=== PATIENT | male | born 1990 | race Caucasian/White ===

== ENCOUNTER 2018-11-17 19:31 | Inpatient (IN) | payer OTHER ==
--- NOTE | 2018-11-17 19:38 | EDPHY ---
H & P Time Seen by Provider: 11/17/18 19:33 HPI/ROS: CHIEF COMPLAINT: M1, suicidal ideation HISTORY OF PRESENT ILLNESS: 28-year-old male arrives via police on an M1 hold for his concerns over suicidal ideation. Patient is unable to provide me limited information. When asked the patient questions he will stare at me and read limited information. Specifically when I inquire about suicidal ideation states that this is not true and that he was "just talking trash". Per the M1 report, patient was fired from the job today, has been off of his medication and has endorsed suicidal ideation. Patient denies self-injurious behavior. He will not answer whether he is experiencing hallucinations. He will not answer when I asked about substance abuse. PRIMARY CARE PROVIDER: REVIEW OF SYSTEMS: 10 systems reviewed and negative with the exception of the elements mentioned in the history of present illness PAST MEDICAL & SURGICAL HISTORY: Paranoid schizophrenia. SOCIAL HISTORY:The patient will not answer whether he has consumed acute alcohol or drugs PHYSICAL EXAM (Prior to examination, patient consented to physical exam, hands were washed and my usual and customary physical exam procedures followed) 1) GENERAL: Well-developed, well-nourished, alert , flat affect. 2) HEAD: Normocephalic, atraumatic 3) HEENT: Pupils equal, round, reactive to light bilaterally. Sclera anicteric. 4) NECK: Full range of motion, no meningeal signs. 5) LUNGS: Clear auscultation bilaterally, no wheezes, no rhonchi, no retractions. 6) HEART: Regular rate and rhythm, no murmur, no heave, no gallop. 7) ABDOMEN: No guarding, no rebound, no focal tenderness, negative McBurney's, negative Elder's, negative Rovsing's, negative peritoneal sign, 8) MUSCULOSKELETAL: Moving all extremities, no focal areas of tenderness, no obvious trauma. No peripheral edema or discoloration. 9) BACK: No CVA tenderness, no midline vertebral tenderness, no fluctuance, no step-off, no obvious trauma, no visual or palpable abnormality. 10) SKIN: No rash, no petechiae. 11) Psychiatric: Patient is oriented X 3, there is no agitation. DIFFERENTIAL DIAGNOSIS: In no particular order including but not limited to suicidal ideation, homicidal ideation, polysubstance abuse (Zulema Gutiérrez Melissa) Constitutional: Initial Vital Signs Temperature (C) 36.4 C 11/17/18 19:46 Heart Rate 84 11/17/18 19:46 Respiratory Rate 16 11/17/18 19:46 Blood Pressure 146/94 H 11/17/18 19:46 O2 Sat (%) 94 11/17/18 19:46 O2 Delivery Mode Room Air Allergies/Adverse Reactions: ranitidine Allergy (Verified 11/17/18 19:55) Home Medications: Medication Instructions Recorded Depakote 11/17/18 Medical Decision Making ED Course/Re-evaluation: 7:55 p.m.: Care of patient under supervision of secondary supervising physician Dr Leatha Dodson with whom I discussed case. 9:30 p.m.: Informed by mental health home care giver that mental health evaluation will not occur until tomorrow morning. 11:36 p.m.: Patient requesting trazodone for insomnia. Midnight: Care turned over to Dr Gonzales (Zulema Gutiérrez Melissa) 0631AM: 11/18/18: Patient signed over to Dr. Agustin. No acute events overnight, patient been sleeping. Pending mental evaluation. (Bello Gonzales) Other Provider: I assumed care of this patient from Dr. Gonzales at 7:00 a.m.. I was notified around 9:30 a.m. that he has been accepted for admission to [address] [place] [address]. EMTALA form has been completed. (Madison Agustin) - Data Points Laboratory Results: Laboratory Results 11/17/18 19:44 11/17/18 19:44 Medications Given: Discontinued Medications Lorazepam (Ativan) 1 mg PO ONCE ONE Stop: 11/18/18 01:05 Last Admin: 11/18/18 01:06 Dose: 1 mg Lorazepam (Ativan) 1 mg PO ONCE ONE Stop: 11/18/18 03:53 Last Admin: 11/18/18 03:57 Dose: 1 mg Trazodone HCl (Trazodone) 50 mg PO EDNOW ONE Stop: 11/17/18 23:36 Last Admin: 11/17/18 23:39 Dose: 50 mg Departure - Departure Disposition: [facility] IP Clinical Impression: Suicidal ideation Condition: Good Referrals: Patient,NotPresent [Unknown] - As per Instructions
[2018-11-17 19:56] LABS: PLATELET COUNT 226 10^3/uL (150-400)
[2018-11-17] MEDS ORDERED: traZODone 50 MG TAB PO ONE (23:35)
[2018-11-17] MEDS ORDERED: traZODone 50 MG TAB ONE (23:36)
[2018-11-18] MEDS ORDERED: LORazepam 1 MG TAB PO ONE ×2 (01:04→03:52)
[2018-11-18] MEDS ORDERED: LORazepam 1 MG TAB ONE ×2 (01:04→03:52)
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
--- NOTE | 2018-11-18 10:27 | ASMTTCLDSP ---
TLC Discharge Disposition Disposition: Answers: Admit Disposition Notes: Notes: Admit 3N. Discharge Concerns/Recommendations: Notes: In consultation with [facility] ED physician, Madison Agustin MD and on-call Advanced Practitioner Nurse, Salvador Ramirez APN, both concurred that pt appears to meet 27-65 criteria requiring psychiatric hospitalization as pt appears to be at risk of harm to self/gravely disabled due to a mental illness condition. Pt was given the 3N prohibited belongings list while in the ED. Was patient given the Answers: Yes Inpatient Behavioral Health Prohibited Belongings List while in the ED? For inpatient Salvador Ramirez APN admission, the following psychiatrist agreed to accept patient for admission to Behavioral Health ([facility]): Type of Hold: Answers: M1/72-hour Hold Hold initiated by: Answers: Police Date Signed: 11/18/2018 10:26 AM Electronically Signed By:Genaro Ferguson
--- NOTE | 2018-11-18 11:11 | GCON ---
DATE OF CONSULTATION: 11/18/2018 SUBJECTIVE: Mr. Rockwell is a 28-year-old gentleman with a history of schizophrenia. Presents with jak cidality. In the emergency department, he was initially resistant to history. When I speak with the patient, he notes that he acknowledges his suicidality. States he is doing "not well." He denies r ecent fever, chills, cough, sputum, nausea, vomiting, diarrhea or unexplained weight loss. He states he drinks more than he should and feels he is potentially at risk for moderate withdrawal. He has h ad it in the past. He has no history of jaundice. In the past, he has taken Depakote but does not appear to be taking anything now. REVIEW OF SYSTEMS: Complete 10-point review of systems conducted and negative except as noted in the HPI. PAST MEDICAL HISTORY: Schizophrenia. ALLERGIES: Ranitidine. HOME MEDICATIONS: None. Depakote previously. FAMILY HISTORY: Notable for heart disease. SOCIAL HISTORY: No tobacco. Alcohol as in the HPI. PHYSICAL EXAMINATION: VITAL SIGNS: Temp 36.4, blood pressure 146/94, pulse 84, breathing 16 times a minute, 94% on room air. GENERAL: No acute distress. HEENT: Sclerae are anicteric. Oropharynx c lear. Mucous membranes are moist. NECK: Supple without lymphadenopathy or JVD. LUNGS: Clear to a uscultation bilaterally. CARDIOVASCULAR: Heart is S1, S2. GI: Abdomen is soft, nontender, nondist ended. EXTREMITIES: Lower extremities without edema. Calves nontender. INTEGUMENT: Skin without rash. NEUROLOGIC: Exam is nonfocal. DATA REVIEWED: Tox screen is negative. Sodium 138, potassium 3.8, chloride 106, bicarbonate 21, BUN 19, creatinine 1.2, glucose 119. White count 8, hematocrit 46, platelets are 226,000. ASSESSMENT/PLAN: This is a 28-year-old gentleman with schizophrenia here with suicidality. 1. Suicidality. Management per Behavioral Health. 2. Schizophrenia. The patient probably does better on a mood stabilizer this can be dete rmined by Behavioral Health. 3. Alcohol use. The patient is clinically not in withdrawal now. If he becomes agitated or disorie nted is worth considering a disposition to Behavioral Health. Thank you for this consultation. Hospital Medicine will not follow. /[id number]/MODL
[2018-11-18] MEDS: OLANZapine DISINTEGR 10 MG TAB PO PRN (20:14)
[2018-11-18] MEDS: LORazepam 0.5 MG TAB PO PRN (20:14)
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
--- NOTE | 2018-11-19 12:13 | ASMTCMCOM ---
CM Note CM Note Notes: Pt and CC completed MTP, signed and placed in pt's chart. Pt. denied any current legal issues. Pt. reports drinking alcohol daily, adding he has "nine shots per day". Pt. stated he feels he is drinking "too much" and was in recovery prior. Pt. stated he "used to" smoke THC, but hasn't smoked in "quite some time". Pt. denied all other current substance use, sharing he "fooled around with heroin". Pt. stated he was three months sober, prior to his recent relapse. CC offered pt. the AA Big Book, which pt. already had. Pt. stated he needs to rework the steps. Pt. presents as alert, in bed, anxious, bit guarded, fair to poor eye contact and cooperative. Staff report pt. sleeping 8 hours and being medication compliant. CC will request pt. sign ROIs to family. CC will research pt's or pt's family's ability to pay for a bus ticket back to [place]. Date Signed: 11/19/2018 12:12 PM Electronically Signed By:Alisha Champagne
--- NOTE | 2018-11-19 13:59 | ASMTBHDC ---
Notes Note: Notes: Pt signed a SUZI for his mother, Mikayla ([phone]). Pt. stated he plans to drive his personal car to [place] after discharging. Date Signed: 11/19/2018 01:58 PM Electronically Signed By:Alisha Champagne
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
[2018-11-19] MEDS ORDERED: OLANZapine DISINTEGR 10 MG TAB PO SCH (21:00)
[2018-11-19] MEDS: LORazepam 0.5 MG TAB PO PRN (21:28)
--- NOTE | 2018-11-20 08:39 | SOAPPROG ---
SOAP Progress Note Assessment/Plan: Assessment: Unspecified Psychosis. R/O Schizoaffective Disorder. R/O Depression with Psychotic Features. R/O Delusional disorder. No improvement noted. (see subjective/objective note). Patient is not safe to discharge at this time as patient continues to exhibit signs of psychosis, and express psychosis symptoms. Patient requires continued inpatient care because of current psychosis, and requires inpatient level of care to stabilize in order to no longer be gravely disabled due to mental illness. Patient could benefit from continued inpatient hospitalization for crisis stabilization, safety, and medication evaluation. Plan: 1. Psychotropic medications: After reviewing options, risks, and benefits patient agrees to continue current medications. No other medication changes at this time as more time is needed to determine ongoing tolerability and efficacy. Plan is to continue to observe patient for response and side effects from medications, and ongoing monitoring and evaluation. 2. Review with patient informed consent and recommendations for psychotropic medication treatment listed below 3. Labs: no additional labs at this time 4. Therapy: continue milieu and group therapy 5. Further investigation including gathering information from patients relatives and review of past case records to inform treatment plan. 6. Safety/Wellness plan and follow-up outpatient appointments to be established prior to discharge. Next steps are for patient to meet with child care associate to plan a safe discharge plan and establish outpatient services for ongoing treatment. 7. Confer with inpatient treatment team regarding treatment plan. 8. Psychosocial stressors addressed through case technician 9. Legal status: M1 10. Consider discharge next week if patient is in stable condition, safe, and has a safe discharge plan. 11. Substance abuse intervention: alcohol PSYCHOTROPIC MEDICATION TREATMENT INFORMED CONSENT and RECOMMENDATIONS: Review nature of condition, diagnosis, and prognosis. Review nature and purpose of psychotropic medication treatment. Review type of psychotropic medications being ordered. Review risk and benefits of psychotropic medication treatment. Review probable length of time patient will need to take medications. Review risk and benefits of not undergoing psychotropic medication treatment. Review alternative treatments to psychotropic medications. Review psychotropic medications contraindications, drug-drug interactions, side effects, and importance of reporting any side effects to a psychiatric provider or nurse during inpatient hospitalization, and upon discharge to patients psychiatric outpatient provider, primary care provider, or other health prompt care rn. Review importance of asking a nurse, psychiatric provider, or primary care provider any questions or problems concerning the psychotropic medications. Verify patient understands the information that has been provided, and understands, accepts, and agrees to psychotropic medications. Review patients safety plan and importance of patient to report to staff while hospitalized if patient is ever a danger to self/others, or unable to care for self, and upon discharge, the importance for patient to contact [facility] or [facility], or go to the nearest emergency room, if patient is ever a danger to self/others, or unable to care for self. Recommend that upon discharge patient establish medication management treatment with a psychiatric provider, establishes routine therapy appointments, and follow-up with primary care provider. Verify patient understands and agrees to these recommendations. 11/20/18 08:43 Subjective: Following up with patient for evaluation of depression, psychosis, and safety. Patient reports, "Doing okay." Patient expresses the following psychiatric symptoms paranoia. Patient reports he is being stalked by gangs, and thinks that it is possible to "swap one person's consciousness with another person's." Patient reports taking medications as prescribed, and describes response to medications as okay. Patient does not report undesirable side effects from the medications, and agrees to continue current medications. Patient describes getting 8 hours of sleep. Patient expresses desire to move back to [place], [place] and live with his mother and father after discharging. Objective: Vital Signs Temp Pulse Resp BP Pulse Ox 36.6 C 76 14 127/70 H 95 11/20/18 06:00 11/20/18 06:00 11/20/18 06:00 11/20/18 06:00 11/20/18 06:00 NURSING REPORT: Consulted with nursing for update on patients progress in treatment. Nurses report patient is engaged in treatment, is attending groups, slept 8 hours, expresses the following psychiatric symptoms: paranoia, exhibits the following psychiatric symptoms: withdrawn, paranoid; is eating all meals, is agreeable to medications and taking as prescribed with no report of side effects, with no s/s of EPS/akathisia, and denies SI/HI, denies A/V hallucinations, and denies delusions. MSE: The patient is a well-nourished male looking stated chronological age. Attire is appropriate and dress is casual. Grooming status is appropriate. Ambulation is independent. Gait is normal and coordinated. Posture is normal and relaxed. Eye contact is appropriate. Motor activity is appropriate with purposeful, organized, coordinated movements; with no involuntary movements. Attitude is cooperative and friendly. Patient appears attentive and relates well to this interviewer. Language production is spontaneous. R/R/V normal. Articulation is clear. Patient reports mood as depressed with congruent affect. Patient's thought process linear and fairly logical. Patient does not report suicidal/homicidal thoughts, ideas, or plans. Patient denies auditory, visual hallucinations. Patient reports delusions. Patient does not appear to be attending to internal stimuli. Patient's attention and concentration are fair. Patient is oriented to person, place, and time. Patient appears to be a poor historian. Patient's insight and judgment poor. - Time Spent With Patient Time Spent With Patient: 15 minutes, met with patient individually. - Pending Discharge Pending Discharge Within 24 Hours: No Pending Discharge Within 48 Hours: No ICD10 Worksheet Patient Problems: Problems Problem Status Onset Suicidal ideation Acute
[2018-11-20] MEDS: LORazepam 0.5 MG TAB PO PRN ×2 (09:38→22:17)
[2018-11-20] MEDS ORDERED: PALIPERIDONE 3 MG TAB.ER PO ONE (12:21)
--- NOTE | 2018-11-20 14:01 | ASMTCMCOM ---
CM Note CM Note Notes: Pt. was laying face down in bed when CC approached. Pt. stated he is feeling "okay". Pt. reports sleeping "okay". Pt. stated he is eating well and attending some groups, adding the groups "they're okay". Pt. stated his family meeting with [facility] and PNP went "fine". Pt. stated he is "stuck here for a few days". Pt. stated his mom is coming to [place] on Friday. Pt. stated he doesn't know the plan after his mom arrives. Pt. stated he is "fine, I guess" getting a long acting injectable. Pt. denied SI, HI, AVH and paranoia. Pt. presents as semi-alert, depressed, lacking eye contact, passive, and mostly cooperative. Staff report pt. sleeping 8 hours and being medication compliant. Pt. attended the treatment team meeting this morning. Pt. is scheduled to get his first BRIDGES on Friday and to receive his second BRIDGES on Friday. Pt's mother to arrive in [place] on Friday or Friday. Will potentially need to schedule a family meeting for next week with [facility]. Pt. signed SUZI for [facility] in [place], faxed request for medical records for pt's last 5 hospitalizations this past year. Date Signed: 11/20/2018 01:59 PM Electronically Signed By:Alisha Champagne
[2018-11-21] MEDS: PALIPERIDONE 3 MG TAB.ER PO SCH (09:29)
--- NOTE | 2018-11-21 09:32 | ASMTCMCOM ---
CM Note CM Note Notes: Ct. was in bed when CC checked in with him. Ct. said that he is doing OK. He looked very tired and CC asked him how he slept last night. He said that he did not sleep well because he wasn't tired enough. CC asked about MOC and ct. said that he is not sure when she is coming and that she might be arriving to [place] today. Ct. has been participating in groups. Date Signed: 11/21/2018 09:31 AM Electronically Signed By:Jodi Garcia
[2018-11-21] MEDS: LORazepam 0.5 MG TAB PO PRN ×2 (13:10→20:12)
--- NOTE | 2018-11-21 15:22 | SOAPPROG ---
SOAP Progress Note Assessment/Plan: Assessment: 28yo CM with schizoaffective d/o, multiple prior psychiatric admissions and also substance use hx. Hx of medication nonadherence 11/21/18 15:55 slept 7 hr. taking medications. reporting anxiety, poor sleep, but feeling safe in hospital. mother coming from out of town. On interview, pt reports feeling "cooped up", and having separation anxiety from his phone, so he is feeling not as good, and then will look worse to staff b/c of this, and seem more paranoid, then will be kept in hospital longer which will be a negative cycle etc. Talked of having gender dysphoria. That this is the underlying issue for him. Talked of his thoughts around whether people are able to swap consciousness Denied medication s/e. Feels safe in hospital. Agrees to IM Invega as scheduled for AM. denies any physical complaints. Feels mother is supportive and glad she is coming out to visit. Plans to return to live with her in [place] [facility]. MSE: cooperative, good eye contact, casually dressed, nml vol/rate speech ,nml psychom activity, mood "okay", affect controlled/restricted, denied any SI or thoughts to harm others. denied AH/VH. thought processes with some perseveration on questions about self-identity and past actions. A&Ox3. PLAN: cont current meds tolerating Invega without s/e. receives IM in AM for initial loading dose mother coming in town this weekend Objective: Vital Signs Temp Pulse Resp BP Pulse Ox 36.6 C 96 14 143/80 H 96 11/21/18 06:00 11/21/18 06:00 11/21/18 06:00 11/21/18 06:00 11/21/18 06:00 - Time Spent With Patient Time Spent With Patient: 20min - Pending Discharge Pending Discharge Within 24 Hours: No Pending Discharge Within 48 Hours: No ICD10 Worksheet Patient Problems: Problems Problem Status Onset Schizoaffective disorder, bipolar type Chronic
[2018-11-22] MEDS ORDERED: PALIPERIDONE PALMITATE 234 MG/1.5 ML SYR IM ONE (09:00)
[2018-11-22] MEDS: PALIPERIDONE 3 MG TAB.ER PO SCH (09:44)
[2018-11-22] MEDS: LORazepam 0.5 MG TAB PO PRN ×2 (09:53→20:16)
[2018-11-22] MEDS: OLANZapine DISINTEGR 10 MG TAB PO PRN (21:46)
--- NOTE | 2018-11-23 06:34 | SOAPPROG ---
SOAP Progress Note Assessment/Plan: Assessment: 28yo CM with schizoaffective d/o, multiple prior psychiatric admissions and also substance use hx. Hx of medication nonadherence 11/21/18 15:55 slept 7 hr. taking medications. reporting anxiety, poor sleep, but feeling safe in hospital. mother coming from out of town. On interview, pt reports feeling "cooped up", and having separation anxiety from his phone, so he is feeling not as good, and then will look worse to staff b/c of this, and seem more paranoid, then will be kept in hospital longer which will be a negative cycle etc. Talked of having gender dysphoria. That this is the underlying issue for him. Talked of his thoughts around whether people are able to swap consciousness Denied medication s/e. Feels safe in hospital. Agrees to IM Invega as scheduled for AM. denies any physical complaints. Feels mother is supportive and glad she is coming out to visit. Plans to return to live with her in [facility]. MSE: cooperative, good eye contact, casually dressed, nml vol/rate speech ,nml psychom activity, mood "okay", affect controlled/restricted, denied any SI or thoughts to harm others. denied AH/VH. thought processes with some perseveration on questions about self-identity and past actions. A&Ox3. PLAN: cont current meds tolerating Invega without s/e. receives IM in AM for initial loading dose mother coming in town this 11/22/18 16:34 late entry per staff, slept 9 hr but sleep was restless, awakened at 3am. took ativan prn for anxiety. reports feeling "a little down", perseverating on some mistakes he has made in the past, related to his gender dysphoria which is "with me all the time". does plan to move back to [place] with his mother, who visited yesterday and he feels she is very supportive. Denied any med s/e with IM he received this AM. no cogwheeling on exam. denied akathisia. good eye contact, nml rate/vol speech, cooperative, affect restricted, mood "a little down". denied any SI or thoughts to harm others. denied ah/vh. thoughts linear overall but with some perseverations on past. no overt delusional thoughts expressed. PLAN: cont Invega po and Ativan prn. started Invega Sustenna today vol status hoping for d/c soon. coordinate f/u with mother as pt planning to return to [facility] Objective: Vital Signs Temp Pulse Resp BP Pulse Ox 36.8 C 105 H 16 137/85 H 94 11/23/18 06:00 11/23/18 06:00 11/23/18 06:00 11/23/18 06:00 11/23/18 06:00 - Time Spent With Patient Time Spent With Patient: 15min - Pending Discharge Pending Discharge Within 24 Hours: No Pending Discharge Within 48 Hours: No ICD10 Worksheet Patient Problems: Problems Problem Status Onset Schizoaffective disorder, bipolar type Chronic
[2018-11-23] MEDS: PALIPERIDONE 3 MG TAB.ER PO SCH (08:25)
--- NOTE | 2018-11-23 11:18 | SOAPPROG ---
SOAP Progress Note Assessment/Plan: Assessment: Schizoaffective Disorder. Slight improvement noted. (see subjective/objective note). Patient is not safe to discharge at this time as patient continues to exhibit signs of psychosis, and express psychosis symptoms. Patient requires continued inpatient care because of current psychosis, and requires inpatient level of care to stabilize in order to no longer be gravely disabled due to mental illness. Patient could benefit from continued inpatient hospitalization for crisis stabilization, safety, and medication evaluation. Due to patients history of non-adherence, patient could benefit from second loading dose of Invega Sustenna 156 mg IM on Friday prior to discharge. Plan: 1. Psychotropic medications: After reviewing options, risks, and benefits patient agrees to continue current medications. No medication changes at this time as more time is needed to determine ongoing tolerability and efficacy. Plan is to continue to observe patient for response and side effects from medications, and ongoing monitoring and evaluation. 2. Review with patient informed consent and recommendations for psychotropic medication treatment listed below 3. Labs: no additional labs at this time 4. Therapy: continue milieu and group therapy 5. Further investigation including gathering information from patients relatives and review of past case records to inform treatment plan. 6. Safety/Wellness plan and follow-up outpatient appointments to be established prior to discharge. Next steps are for patient to meet with patient care assistant to plan a safe discharge plan and establish outpatient services for ongoing treatment. 7. Confer with inpatient treatment team regarding treatment plan. 8. Psychosocial stressors addressed through caseworker 9. Legal status: voluntary 10. Consider discharge next week if patient is in stable condition, safe, and has a safe discharge plan. 11. Substance abuse intervention: alcohol PSYCHOTROPIC MEDICATION TREATMENT INFORMED CONSENT and RECOMMENDATIONS: Review nature of condition, diagnosis, and prognosis. Review nature and purpose of psychotropic medication treatment. Review type of psychotropic medications being ordered. Review risk and benefits of psychotropic medication treatment. Review probable length of time patient will need to take medications. Review risk and benefits of not undergoing psychotropic medication treatment. Review alternative treatments to psychotropic medications. Review psychotropic medications contraindications, drug-drug interactions, side effects, and importance of reporting any side effects to a psychiatric provider or nurse during inpatient hospitalization, and upon discharge to patients psychiatric outpatient provider, primary care provider, or other health care partner. Review importance of asking a nurse, psychiatric provider, or primary care provider any questions or problems concerning the psychotropic medications. Verify patient understands the information that has been provided, and understands, accepts, and agrees to psychotropic medications. Review patients safety plan and importance of patient to report to staff while hospitalized if patient is ever a danger to self/others, or unable to care for self, and upon discharge, the importance for patient to contact [facility] or [facility], or go to the nearest emergency room, if patient is ever a danger to self/others, or unable to care for self. Recommend that upon discharge patient establish medication management treatment with a psychiatric provider, establishes routine therapy appointments, and follow-up with primary care provider. Verify patient understands and agrees to these recommendations. 11/23/18 11:18 Subjective: Following up with patient for evaluation of depression, psychosis, and safety. Patient reports, "Doing okay." Patient expresses the following psychiatric symptoms paranoia. Patient reports taking medications as prescribed, and describes response to medications as okay. Patient does not report undesirable side effects from the medications, and agrees to continue current medications. Patient describes getting 8 hours of sleep. Patient agrees to second loading of Invega Sustenna 156 mg IM Friday prior to discharge. Objective: Vital Signs Temp Pulse Resp BP Pulse Ox 36.8 C 105 H 16 137/85 H 94 11/23/18 06:00 11/23/18 06:00 11/23/18 06:00 11/23/18 06:00 11/23/18 06:00 NURSING REPORT: Consulted with nursing for update on patients progress in treatment. Nurses report patient is engaged in treatment, is attending some groups, slept 8 hours, expresses the following psychiatric symptoms: paranoia, exhibits the following psychiatric symptoms: withdrawn, paranoid; is eating all meals, is agreeable to medications and taking as prescribed with no report of side effects, with no s/s of EPS/akathisia, and denies SI/HI, denies A/V hallucinations, and denies delusions. SUBSTANCE ABUSE BRIEF INTERVENTION: Brief intervention regarding the risks of alcohol abuse is provided to patient with goal to reduce the risk of harm that could result from the continued use of alcohol, with the general aim to investigate the problem, raise awareness of problem, develop a solution with the patient, recommend a specific change or activity, and motivate the patient toward change. Assess substance abuse behavior and give supportive advice about harm reduction, recommend a reduction in hazardous/at-risk consumption patterns, and facilitate referrals for additional specialized treatment with nurse care manager. Intermediate goal is for the patient to quit and attend outpatient substance abuse treatment. Intervention focus on intermediate goals to allow for more immediate success in the treatment process to keep the patient motivated. Review following with patient: Alcohol/Binge Drinking risks : short-term: injuries, violence, alcohol poisoning, risky sexual behaviors. Long-term: high blood pressure, stroke, liver disease, digestive problems, cancer, learning and memory problems, depression and anxiety, social problems, and alcohol dependence. OUTPATIENT SUBSTANCE ABUSE TREATMENT: Patient referred to outpatient provider and treatment for continued treatment related to substance abuse. MSE: The patient is a well-nourished male looking stated chronological age. Attire is appropriate and dress is casual. Grooming status is appropriate. Ambulation is independent. Gait is normal and coordinated. Posture is normal and relaxed. Eye contact is appropriate. Motor activity is appropriate with purposeful, organized, coordinated movements; with no involuntary movements. Attitude is cooperative and friendly. Patient appears attentive and relates well to this interviewer. Language production is spontaneous. R/R/V normal. Articulation is clear. Patient reports mood as okay with expansive, inappropriate affect. Patients thought process is fairly linear and logical. Patient does not report suicidal/homicidal thoughts, ideas, or plans. Patient denies auditory, visual hallucinations. Patient reports delusions. Patient does appear to be attending to internal stimuli. Patients attention and concentration are fair. Patient is oriented to person, place, and time. Patient appears to be a poor historian. Patients insight and judgment poor. - Time Spent With Patient Time Spent With Patient: 15 minutes, met with patient individually. - Pending Discharge Pending Discharge Within 24 Hours: No Pending Discharge Within 48 Hours: Yes Pending Discharge Date: 11/25/18 Pending Discharge Time: 11:00 ICD10 Worksheet Patient Problems: Problems Problem Status Onset Schizoaffective disorder, bipolar type Chronic
[2018-11-23] MEDS ORDERED: LORazepam 0.5 MG TAB PO PRN (11:28)
[2018-11-23] MEDS: LORazepam 0.5 MG TAB PO PRN ×2 (13:12→20:52)
--- NOTE | 2018-11-23 13:31 | ASMTBHDC ---
Notes Note: Notes: Pt. reports "doing well". Pt. stated his weekend was "fine". Pt. reports sleeping "okay, woke up early". Pt. stated he is eating well and attended a group this morning. Pt. reports no issues with his current medications. Pt. stated his mom has arrive and visited. Pt. stated he received his first long acting injectable this weekend. Pt. denied SI, HI, AVH and paranoia. Pt. stated he still plans to drive himself to [place]. Pt. stated he needs to get his things from his apartment prior to driving to [place]. Pt. agreed to stay until Friday to get his second long acting injectable. Pt. presents as alert, guarded, sitting on his bed, fair eye contact, and cooperative. Staff report pt. sleeping 10 hours and being medication compliant. Pt. has a family meeting scheduled for today at noon. Date Signed: 11/23/2018 01:29 PM Electronically Signed By:Alisha Champagne
--- NOTE | 2018-11-23 13:39 | ASMTBHFAM ---
Notes Note: Notes: Meeting with CC, Pt, MOC, and PNP. MOC stated she will be flying home on Friday. MOC stated they live in [place], [place] [id number]. MOC recommended [facility] previously known [facility], in [place]. Pt. signed an SUZI for [employer]. Pt. reports being "little bit" anxious during the meeting. Pt. stated he is willing to try gabapentin. MOC requested pt be prescribed benzodiazepines, stating "Derick is vary aware of the benzodiazepines issues". Pt. reports never abusing Ativan in the past. MOC stated pt is "very aware of not getting addicted". MOC stated she will be with the patient most of the time, once he arrives in [place]. Pt. stated "Gabapentin helped with my obsessive thoughts in the past". MOC stated without a medication for anxiety, "without all that he struggles with substances". MOc stated the plan for the patient is for pt to drive back to [place] alone, get a job and possibly return to school. Pt. stated he doesn't have a home group in [place], but stated he does attend AA meetings in [place]. CC reached out to [facility] [facility] about an intake appointment for pt. [facility] stated their walk-in times are Friday and Friday 1:00pm-3:00pm and Friday and Friday 9:00am - 11:00am. CC spoke with pt and MOC about this and they understood and agreed to go during a walk-in time Date Signed: 11/23/2018 01:39 PM Electronically Signed By:Alisha Champagne
[2018-11-23] MEDS: GABAPENTIN 300 MG CAP PO SCH ×2 (16:07→20:52)
[2018-11-24] MEDS: PALIPERIDONE 3 MG TAB.ER PO SCH (09:21)
[2018-11-24] MEDS: GABAPENTIN 300 MG CAP PO SCH ×3 (09:21→20:38)
[2018-11-24] MEDS: LORazepam 0.5 MG TAB PO PRN ×2 (09:21→23:17)
--- NOTE | 2018-11-24 09:25 | SOAPPROG ---
SOAP Progress Note Assessment/Plan: Assessment: Schizoaffective Disorder. Improvement noted. (see subjective/objective note). Patient could benefit from continued inpatient hospitalization for crisis stabilization, safety, and medication evaluation. Due to patients history of non-adherence, patient could benefit from second loading dose of Invega Sustenna 156 mg IM on Friday prior to discharge. Plan: 1. Psychotropic medications: After reviewing options, risks, and benefits patient agrees to continue current medications. No medication changes at this time as more time is needed to determine ongoing tolerability and efficacy. Plan is to continue to observe patient for response and side effects from medications, and ongoing monitoring and evaluation. 2. Review with patient informed consent and recommendations for psychotropic medication treatment listed below 3. Labs: no additional labs at this time 4. Therapy: continue milieu and group therapy 5. Further investigation including gathering information from patients relatives and review of past case records to inform treatment plan. 6. Safety/Wellness plan and follow-up outpatient appointments to be established prior to discharge. Next steps are for patient to meet with healthcare management consultant to plan a safe discharge plan and establish outpatient services for ongoing treatment. 7. Confer with inpatient treatment team regarding treatment plan. 8. Psychosocial stressors addressed through embedded case manager 9. Legal status: voluntary 10. Consider discharge next week if patient is in stable condition, safe, and has a safe discharge plan. 11. Substance abuse intervention: alcohol PSYCHOTROPIC MEDICATION TREATMENT INFORMED CONSENT and RECOMMENDATIONS: Review nature of condition, diagnosis, and prognosis. Review nature and purpose of psychotropic medication treatment. Review type of psychotropic medications being ordered. Review risk and benefits of psychotropic medication treatment. Review probable length of time patient will need to take medications. Review risk and benefits of not undergoing psychotropic medication treatment. Review alternative treatments to psychotropic medications. Review psychotropic medications contraindications, drug-drug interactions, side effects, and importance of reporting any side effects to a psychiatric provider or nurse during inpatient hospitalization, and upon discharge to patients psychiatric outpatient provider, primary care provider, or other health medical care administrator. Review importance of asking a nurse, psychiatric provider, or primary care provider any questions or problems concerning the psychotropic medications. Verify patient understands the information that has been provided, and understands, accepts, and agrees to psychotropic medications. Review patients safety plan and importance of patient to report to staff while hospitalized if patient is ever a danger to self/others, or unable to care for self, and upon discharge, the importance for patient to contact [facility] or [facility], or go to the nearest emergency room, if patient is ever a danger to self/others, or unable to care for self. Recommend that upon discharge patient establish medication management treatment with a psychiatric provider, establishes routine therapy appointments, and follow-up with primary care provider. Verify patient understands and agrees to these recommendations. 11/24/18 09:24 Subjective: Following up with patient for evaluation of depression, psychosis, and safety. Patient reports, "Doing well." Patient expresses the following psychiatric symptoms paranoia. Patient reports taking medications as prescribed, and describes response to medications as okay. Patient does not report undesirable side effects from the medications, and agrees to continue current medications. Patient describes getting 8 hours of sleep. Patient agrees to second loading of Invega Sustenna 156 mg IM Friday prior to discharge. Objective: Vital Signs Temp Pulse Resp BP Pulse Ox 36.9 C 85 14 133/82 H 95 11/24/18 06:00 11/24/18 06:00 11/24/18 06:00 11/24/18 06:00 11/24/18 06:00 NURSING REPORT: Consulted with nursing for update on patients progress in treatment. Nurses report patient is engaged in treatment, is attending some groups, slept 8 hours, expresses the following psychiatric symptoms: anxiety, exhibits the following psychiatric symptoms: withdrawn; is eating all meals, is agreeable to medications and taking as prescribed with no report of side effects , with no s/s of EPS/akathisia, and denies SI/HI, denies A/V hallucinations, and denies delusions. SUBSTANCE ABUSE BRIEF INTERVENTION: Brief intervention regarding the risks of alcohol abuse is provided to patient with goal to reduce the risk of harm that could result from the continued use of alcohol, with the general aim to investigate the problem, raise awareness of problem, develop a solution with the patient, recommend a specific change or activity, and motivate the patient toward change. Assess substance abuse behavior and give supportive advice about harm reduction, recommend a reduction in hazardous/at-risk consumption patterns, and facilitate referrals for additional specialized treatment with [facility] do resident urgent care. Intermediate goal is for the patient to quit and attend outpatient substance abuse treatment. Intervention focus on intermediate goals to allow for more immediate success in the treatment process to keep the patient motivated. Review following with patient: Alcohol/Binge Drinking risks : short-term: injuries, violence, alcohol poisoning, risky sexual behaviors. Long-term: high blood pressure, stroke, liver disease, digestive problems, cancer, learning and memory problems, depression and anxiety, social problems, and alcohol dependence. OUTPATIENT SUBSTANCE ABUSE TREATMENT: Patient referred to outpatient provider and treatment for continued treatment related to substance abuse. MSE: The patient is a well-nourished male looking stated chronological age. Attire is appropriate and dress is casual. Grooming status is appropriate. Ambulation is independent. Gait is normal and coordinated. Posture is normal and relaxed. Eye contact is appropriate. Motor activity is appropriate with purposeful, organized, coordinated movements; with no involuntary movements. Attitude is cooperative and friendly. Patient appears attentive and relates well to this interviewer. Language production is spontaneous. R/R/V normal. Articulation is clear. Patient reports mood as okay with congruent affect. Patients thought process is linear and logical. Patient does not report suicidal/homicidal thoughts, ideas, or plans. Patient denies auditory, visual hallucinations. Patient denies delusions. Patient does appear to be attending to internal stimuli. Patients attention and concentration are fair. Patient is oriented to person, place, and time. Patient appears to be a poor historian. Patients insight and judgment are fair. - Time Spent With Patient Time Spent With Patient: 15 minutes, met with patient individually. - Pending Discharge Pending Discharge Within 24 Hours: Yes Pending Discharge Within 48 Hours: No Pending Discharge Date: 11/25/18 Pending Discharge Time: 11:00 ICD10 Worksheet Patient Problems: Problems Problem Status Onset Schizoaffective disorder, bipolar type Chronic
[2018-11-25 06:53] VITALS: BP 118/75
[2018-11-25] MEDS: PALIPERIDONE 3 MG TAB.ER PO SCH (08:54)
[2018-11-25] MEDS: GABAPENTIN 300 MG CAP PO SCH (08:54)
[2018-11-25] MEDS ORDERED: PALIPERIDONE PALMITATE 156 MG/ML SYR IM ONE (09:00)
--- NOTE | 2018-11-25 12:06 | BDS ---
[f rep st] BEHAVIORAL HEALTH DISCHARGE SUMMARY REASON FOR ADMISSION: From the ED note, dated 11/17/2018, the patient arrived to the emergency room by police on an M1 hold for concerns over suicidal ideation. The patient was provided limited information during the evaluation in the ER. The patient was admitted involuntarily on an M1 hold, due to being a danger to himself. The patient was admitted for safety, crisis stabilization , and medication evaluation. ADMITTING DIAGNOSES: 1. Schizoaffective disorder, bipolar type. 2. Alcohol use disorder, moderate. ADMISSION PHYSICAL EXAM: The patient was seen for a history and physical consultation on 11/18/2018, for medical clearance for inpatient psychiatric hospitalization and treatment. The patient was medically cleared for inpatient psychiatric hospitalization and treatment. For further details, please refer to consultation note dated 11/18/2018. ADMISSION LABS: 1. CBC within normal limits, except MCV was low at 80.4, eosinophils low at 0.0 and absolute eosinophils low at 0.00. 2. BMP within normal limits, except carbon dioxide was low at 21 and glucose was elevated at 119. 3. Hemoglobin A1c within normal limits at 5.3. 4. Liver function within normal limits, except total protein was elevated at 8.6 and albumin was elevated at 5.2. 5. Lipid panel within normal limits, except HDL cholesterol was elevated at 82. 6. Toxicology screen was negative for all substances screened and negative for ethyl alcohol. MAJOR PROCEDURES OR TESTS: None. HOSPITAL COURSE: The most prominent symptoms and behaviors, while the patient was here, were socially withdrawn. The patient was reporting paranoid delusions. Treatment modalities utilized were milieu and group therapy. The patient has a long history of nonadherence. The patient agreed to Invega Sustenna BRIDGES. Invega 6 mg p.o. daily was started to target psychosis symptoms, was tolerated with no report of side effects and with good response. The patient received Invega Sustenna, 1st loading dose 234 mg IM, on 11/22/2018. The patient tolerated with no report of side effects. The patient received Invega Sustenna, 2nd loading dose 156 mg IM, on 11/25/2018. The patient tolerated IM with no report of side effects. Gabapentin 300 mg p.o. three times daily was started to target anxiety symptoms, was tolerated with no report of side effects and with good response. Ativan 1 mg p.o. q.6 hours p.r.n. was started to target acute agitation and anxiety, was tolerated with no report of side effects and with good response. The patient reported using 1 mg of Ativan, approximately twice daily. The patient has improved considerably with no signs of psychiatric symptoms and no psychiatric symptoms expressed at the time of discharge. The patient reports he has improved since admission. States to be in stable condition, feels safe to discharge and he contracts for safety. The patient's response to treatment was good. There were no adverse or unexpected results of treatment. The patient was safe throughout his stay, active in treatment, engaged in groups, and was appropriate with staff and other patients. The patient met with the treatment team prior to discharge to assess readiness to discharge and review discharge plan. The treatment team consensus is that the patient is in stable condition, has a safe discharge plan , and is ready to discharge today CONDITION AT DISCHARGE: Patient is in stable condition and is no longer a danger to self or others, and is not gravely disabled due to mental illness. Patient is no longer in need of inpatient level of care, and can be safely and effectively treated within the community. The patients level of risk at time of discharge is low. MSE: The patient is casually dressed and with good hygiene , and looks stated age. Patient is sitting, posture is upright, and position is relaxed. Patient appears awake, alert, and responds appropriately and reasonably during interview. Patient is engaged, relates well to interviewer, and emotional facial expression is appropriate to situation and changes appropriately with topic. Patient is cooperative, makes comfortable eye contact , and movements are voluntary, deliberate, coordinated, and smooth and even with no inappropriate movements. Patient makes laryngeal sounds effortlessly and shares conversation appropriately; pace of conversation is appropriate, and stream of talking is fluent; articulation is clear and understandable; word choice is effortless and appropriate for education level; completes sentences, occasionally pausing to think; rate and volume are appropriate for interview and setting. Patient reports mood as euthymic. Patients affect is stable with full variable range, congruent with mood, and appropriate to speech and circumstances. Patient has linear and logical thinking, with no loose associations, tangential thought, thought blocking, concrete thinking, or any other signs of formal thought disorder. Patient denies suicidal and homicidal ideation, and denies hallucinations and delusions. Patient appears to be a reliable historian with sound judgement and good insight into current condition. Patient has no apparent dysfunction in recent or remote memory noted , and no evidence of gross cognitive dysfunction noted at any point during the interview. DISCHARGE DIAGNOSES: 1. Schizoaffective disorder, bipolar type. 2. Alcohol use disorder, moderate. CURRENT MEDICATIONS: After reviewing options, risks and benefits with the patient, the patient agrees to continue: 1. Invega Sustenna maintenance. The patient to follow up for 1st Invega Sustenna maintenance dose on an outpatient basis within 4 weeks. 2. Ativan 1 mg p.o. twice daily p.r.n. 3. Gabapentin 300 mg p.o. three times daily. The patient requests prescriptions for gabapentin and Ativan at the time of discharge. Prescriptions are provided for 30 days. The prescriptions are reviewed with the patient at the time of discharge to ensure accuracy and patient understanding. DISPOSITION: The patient left the hospital independently and voluntarily. He plans to stay at his apartment in [facility] and then leave tomorrow to travel to [place], [place], where he will live with his parents. This plan was reviewed with the patient's mother during a family meeting this week. The patient's mother agrees with this plan. FOLLOWUP: policy service coordinator reports the appropriate outpatient follow-up services have been established and outpatient appointments have been scheduled. The patient received written instructions with times and dates of outpatient follow-up appointments. The following follow-up recommendations were provided to the patient at discharge: Continue psychotropic medications as prescribed and attend appointments as scheduled. Report any side effects to a psychiatric outpatient provider, a primary care provider, or other health daycare teacher. Address any questions or problems concerning the psychotropic medications with a psychiatric outpatient provider, a primary care provider, or other health daycare teacher. Contact [facility] or [facility], or go to the nearest emergency room, if you are ever a danger to yourself/others, or unable to care for yourself. As soon as possible, establish a routine medication management treatment with a psychiatric provider, establish routine therapy appointments, and follow-up with a primary care provider. SUBSTANCE ABUSE BRIEF INTERVENTION: Brief intervention regarding the risks of alcohol abuse is provided to patient with goal to reduce the risk of harm that could result from the continued use of alcohol, with the general aim to investigate the problem, raise awareness of problem, develop a solution with the patient, recommend a specific change or activity, and motivate the patient toward change. Assess substance abuse behavior and give supportive advice about harm reduction, recommend a reduction in hazardous/at-risk consumption patterns, and facilitate referrals for additional specialized treatment with foster care therapist. Intermediate goal is for the patient to quit and attend outpatient substance abuse treatment. Intervention focus on intermediate goals to allow for more immediate success in the treatment process to keep the patient motivated. Review following with patient: Alcohol/Binge Drinking risks : short-term: injuries, violence, alcohol poisoning, risky sexual behaviors. Long-term: high blood pressure, stroke, liver disease, digestive problems, cancer, learning and memory problems, depression and anxiety, social problems, and alcohol dependence. Cocaine use risks: Short-term: erratic and violent behavior, panic attacks, paranoia, psychosis; heart rhythm problems, heart attack; stroke, seizure, coma. Long-term: Loss of sense of smell, nosebleeds, nasal damage and trouble swallowing from snorting; infection and of bowel tissue from decreased blood flow; poor nutrition and weight loss; lung damage from smoking. OUTPATIENT SUBSTANCE ABUSE TREATMENT: Patient referred to outpatient provider and treatment for continued treatment related to substance abuse. LEGAL COURSE: The patient was admitted on an M1 hold. The patient became voluntary during his stay and patient discharged today independently and voluntarily. ATTITUDE AT TIME OF DISCHARGE: The patients attitude was positive at time of discharge, and patient reports looking forward to discharging today. The patient reports she feels safe to discharge, is no longer a danger to herself or others, is in stable condition, and contracts for safety. Patient states she will continue medications as prescribed, and establish medication management treatment with an outpatient provider after discharge. Patient reports she understands the information that has been provided to her, and she understands, accepts, and agrees to psychotropic medications. Patient describes internal protective factors as the coping skills she has learned while hospitalized here, and she plans to continue to practice these coping skills after discharge. LABS AND RADIOLOGY STUDIES: There were no pending labs or studies at the time of discharge. ADVANCE DIRECTIVES: There were no advance directives on file, and the patient was full code during this hospitalization. The following psychotropic medication treatment informed consent and recommendations were provided to the patient at time of discharge. Patient reports he understands, accepts, and agrees to the information that has been provided. PSYCHOTROPIC MEDICATION TREATMENT INFORMED CONSENT and RECOMMENDATIONS: Review nature of condition, diagnosis, and prognosis. Review nature and purpose of psychotropic medication treatment. Review type of psychotropic medications being prescribed. Review risk and benefits of psychotropic medication treatment. Review probable length of time will need to take medications. Review risk and benefits of not undergoing psychotropic medication treatment. Review alternative treatments to psychotropic medications. Review psychotropic medications contraindications, side effects, and importance of reporting any side effects to a psychiatric provider, primary care provider, or other health daycare teacher. Review importance of asking a psychiatric provider or primary care provider any questions or problems concerning the psychotropic medications. Review safety plan and the importance to contact [facility] or [facility] , or go to the nearest emergency room, if ever a danger to yourself/others, or unable to care for yourself. Recommend upon discharge to establish routine medication management treatment with a psychiatric provider, establish routine therapy appointments, and follow-up with a primary care provider. Verify patient understands, accepts, and agrees to the information that has been provided. /[id number]/[id number] MTDD
== END 2018-11-25 11:14 | disposition home or self-care (01) | DRG 885 ==
LOC: BBEH 11-18 12:40
PROVIDERS: ADMIT Registered Nurse; ATTEND Registered Nurse
DX: F25.0 Schizoaffective disorder, bipolar type (principal); T42.6X6A Underdosing of other antiepileptic and sedative-hypnotic drugs, initial encounter; Z72.89 Other problems related to lifestyle; Z23 Encounter for immunization
CPT/HCPCS: 80305; G0008; G0480; J2426